=== PATIENT | male | born 1960 | race African-American/Black ===

== ENCOUNTER 2016-06-12 02:34 | Emergency (ER) | payer OTHER ==
[2005-09-14 14:28] VITALS: BP 132/78
[~2016-06-12] VITALS: Ht 167.6 cm; Wt 77.3 kg
[~2016-06-12 02:34] MED LIST: ADVICOR 20 MG-51 TER PO; ASPIRIN 81M81 MG/TA2 PO; CHOLESTOFF; CIPRO 500MG TA500 MG PO; DIOVAN; FLEXERIL 1010 MG/TAB PO; FLEXERIL5 MG PO; GLUCOPHAGE; GLUCOPHAGE500 MG PO; GLUCOPHAGE500 MG/TAB PO; HYZAAR 25 MG-101 TAB PO; LORTAB 7.5/5001 TAB PO; METFORMIN; MOTRIN 600600 MG/TAB PO; NORCO 325 MG-51 TAB PO; NORCO 325 MG-7.1 TAB PO; ONE-A-DAY MEN'S1 TAB PO; PEPCID 20MG TAB20 MG PO; PERCOCET 5/321 UDTAB PO; PHENERGAN W/CO120 M1 PO; PREDNISONE20 MG PO; PROAIR HFA0.09 MG/AC IH; REGLAN 10MG10 MG/TAB PO; RT SPIRIVA18 MCG IH; THERAGRAN1 TA1 PO; TRAMADOL50 MG PO; ZITHROMAX 250M250 MG PO; ZOCOR 40MG40 MG PO; ZOFRAN 4MG T4 MG/TAB PO; ZOFRAN ODT4 MG PO
[2016-06-12 02:36] VITALS: BP 137/92; TEMP 98.1
[2016-06-12 03:00] LABS: BASO % 0.1 % (0.0-2.0); EOS % 0.3 % (0-4.0); GRAN # 5.3 (1.4-6.5); HEMATOCRIT 37.3 % (42.0-52.0); HEMOGLOBIN 13.6 g/dl (13.5-18.0); LYMPH # 1.9 (1.2-3.4); LYMPH % 24.3 % (20.0-51.0); MEAN CELL VOLUME 94 fl (80.0-100.0); MEAN CORPUSCULAR HEMOGLOBIN 34 pg (27.0-31.0); MEAN CORPUSCULAR HGB CONC 37 g/dl (33.0-37.0); MEAN PLATELET VOLUME 10.6 fl (7.4-10.4); MONO # 0.6 (0.1-0.6); PLATELET COUNT 213 K/mm3 (130-400); RED BLOOD COUNT 3.96 M/mm3 (4.20-5.60); REDCELL DISTRIBUTION WIDTH-CV 11.8 % (11.5-14.5); WHITE BLOOD COUNT 7.9 K/mm3 (4.8-10.8)
[2016-06-12 03:10] LABS: ADJUSTED CALCIUM 9.7 mg/dL (8.4-10.2); ALBUMIN 4.6 gm/dL (3.5-5.0); BILIRUBIN,TOTAL 1.1 mg/dL (0.0-1.0); CALCIUM 10.2 mg/dL (8.4-10.2); CREATININE, serum 0.78 mg/dL (0.66-1.25)
[2016-06-12 03:16] LABS: INFLUENZA B NEGATIVE
[2016-06-12] MEDS ORDERED: ZOFRAN ODT4 MG PO (03:24)
[2016-06-12] MEDS ORDERED: ZITHROMAX Z PA250 MG PO (03:33)
[2016-06-12 03:41] VITALS: PULSE 97
== END 2016-06-12 03:42 | disposition home or self-care (01) ==
LOC: COL.ER 02:34
PROVIDERS: Family Medicine
DX: E11.43 Type 2 diabetes mellitus with diabetic autonomic (poly)neuropathy (principal); K31.84 Gastroparesis; J32.9 Chronic sinusitis, unspecified; F17.210 Nicotine dependence, cigarettes, uncomplicated; Z79.84 Long term (current) use of oral hypoglycemic drugs
CPT/HCPCS: J2405; J7030

== ENCOUNTER 2017-07-03 23:45 | Emergency (ER) | payer OTHER ==
[2005-09-14 14:28] VITALS: BP 132/78
[~2017-07-03] VITALS: Ht 167.6 cm; Wt 81.8 kg
[~2017-07-03 23:45] MED LIST changes: +ZITHROMAX Z PA250 MG PO
[2017-07-03 23:52] VITALS: BP 130/88; TEMP 98.1
[2017-07-04 01:07] LABS: INFLUENZA A NEGATIVE; INFLUENZA B NEGATIVE
[2017-07-04] MEDS ORDERED: PHENERGAN W/CO120 M1 PO (01:29)
[2017-07-04] MEDS ORDERED: ZITHROMAX Z PA250 MG PO (01:29)
[2017-07-04 02:26] VITALS: PULSE 109
== END 2017-07-04 02:27 | disposition home or self-care (01) ==
LOC: COL.ER 23:45
PROVIDERS: Emergency Medicine
DX: J20.9 Acute bronchitis, unspecified (principal); E11.9 Type 2 diabetes mellitus without complications; I10 Essential (primary) hypertension; F17.210 Nicotine dependence, cigarettes, uncomplicated; Z90.89 Acquired absence of other organs; Z79.84 Long term (current) use of oral hypoglycemic drugs; Z79.82 Long term (current) use of aspirin

== ENCOUNTER 2017-10-04 10:19 | Emergency (ER) | payer OTHER ==
[2005-09-14 14:28] VITALS: BP 132/78
[~2017-10-04] VITALS: Ht 167.6 cm; Wt 77.3 kg
[2017-10-04 10:31] VITALS: BP 124/83; TEMP 98.2
[2017-10-04 11:13] LABS: BASO % 0.2 % (0.0-2.0); EOS # 0.1 (0.0-0.7); GRAN # 2.2 (1.4-6.5); GRAN % 48.3 % (42.2-75.2); HEMOGLOBIN 12.1 g/dl (13.5-18.0); LYMPH # 1.9 (1.2-3.4); LYMPH % 42.4 % (20.0-51.0); MEAN CELL VOLUME 102 fl (80.0-100.0); MEAN CORPUSCULAR HEMOGLOBIN 36 pg (27.0-31.0); MEAN CORPUSCULAR HGB CONC 35 g/dl (33.0-37.0); MONO # 0.3 (0.1-0.6); MONO % 6.9 % (1.7-9.3); PLATELET COUNT 267 K/mm3 (130-400); RED BLOOD COUNT 3.37 M/mm3 (4.20-5.60); REDCELL DISTRIBUTION WIDTH-CV 12.4 % (11.5-14.5)
[2017-10-04 11:15] LABS: HEMATOCRIT 34.4 % (42.0-52.0)
[2017-10-04 11:26] LABS: ALANINE AMINOTRANSFERASE 46 U/L (21-72); ALBUMIN 4.3 gm/dL (3.5-5.0); ALKALINE PHOSPHATASE 52 U/L (50-136); ANION GAP 12 mmol/L (7-16); AST,SGOT 58 U/L (15-37); BILIRUBIN,TOTAL 0.3 mg/dL (0.0-1.0); BLOOD UREA NITROGEN 10 mg/dL (9-20); CALCIUM 9.7 mg/dL (8.4-10.2); CARBON DIOXIDE 27 mmol/L (22-30); CHLORIDE 100 mmol/L (98-107); CREATINE KINASE 1051 U/L (55-170); CREATININE, serum 0.64 mg/dL (0.66-1.25); GLUCOSE 143 mg/dL (74-106); POTASSIUM 3.1 mmol/L (3.4-5.0); SODIUM 139 mmol/L (137-145); TOTAL PROTEIN 7.4 gm/dL (6.4-8.2)
[2017-10-04 11:27] LABS: C-REACTIVE PROTEIN < 0.5 mg/dL (0.0-0.9)
[2017-10-04 11:36] LABS: TROPONIN-I < 0.012 ng/mL (0.000-0.034)
[2017-10-04 11:37] LABS: ERYTHROCYTE SEDIMENTATION RATE 11 mm/hr (0-30)
[2017-10-04] MEDS ORDERED: NORCO 325 MG-51 TAB PO (11:49)
[2017-10-04 12:12] VITALS: PULSE 100
== END 2017-10-04 12:13 | disposition home or self-care (01) ==
LOC: COL.ER 10:19
PROVIDERS: Emergency Medicine
DX: M25.512 Pain in left shoulder (principal); M25.511 Pain in right shoulder; I10 Essential (primary) hypertension; E11.9 Type 2 diabetes mellitus without complications; Z79.84 Long term (current) use of oral hypoglycemic drugs; Z79.82 Long term (current) use of aspirin; X58.XXXA Exposure to other specified factors, initial encounter
CPT/HCPCS: J1885

== ENCOUNTER 2017-12-04 00:43 | Emergency (ER) | payer OTHER ==
[2005-09-14 14:28] VITALS: BP 132/78
[~2017-12-04] VITALS: Ht 167.6 cm; Wt 80.0 kg
[2017-12-04 00:48] VITALS: TEMP 98.2
[2017-12-04 02:47] VITALS: BP 117/83; PULSE 101
== END 2017-12-04 02:51 | disposition home or self-care (01) ==
LOC: COL.ER 00:43
DX: M75.42 Impingement syndrome of left shoulder (principal); F17.210 Nicotine dependence, cigarettes, uncomplicated; Z90.89 Acquired absence of other organs; E78.5 Hyperlipidemia, unspecified; I10 Essential (primary) hypertension; E11.9 Type 2 diabetes mellitus without complications; Z79.84 Long term (current) use of oral hypoglycemic drugs; Z79.82 Long term (current) use of aspirin

== ENCOUNTER → 2017-12-20 | Outpatient (CLI) | payer OTHER | LOC: COL.RAD 07:30 | DX: M75.102 Unspecified rotator cuff tear or rupture of left shoulder, not specified as traumatic (principal); M19.012 Primary osteoarthritis, left shoulder ==

== ENCOUNTER 2018-02-22 02:17 | Observation (INO) | payer OTHER ==
[~2018-02-22] VITALS: Ht 167.6 cm; Wt 74.9 kg
[2018-02-22 02:29] LABS: BASO # 0.1 (0.0-0.2); BASO % 0.6 % (0.0-2.0); EOS % 0.4 % (0-4.0); GRAN % 64.2 % (42.2-75.2); HEMOGLOBIN 12.6 g/dl (13.5-18.0); LYMPH # 2.2 (1.2-3.4); LYMPH % 27.9 % (20.0-51.0); MEAN CELL VOLUME 101 fl (80.0-100.0); MEAN CORPUSCULAR HEMOGLOBIN 35 pg (27.0-31.0); MEAN CORPUSCULAR HGB CONC 34 g/dl (33.0-37.0); MEAN PLATELET VOLUME 10.3 fl (7.4-10.4); MONO # 0.5 (0.1-0.6); MONO % 6.4 % (1.7-9.3); PLATELET COUNT 259 K/mm3 (130-400); RED BLOOD COUNT 3.62 M/mm3 (4.20-5.60); REDCELL DISTRIBUTION WIDTH-CV 11.8 % (11.5-14.5)
[2018-02-22 02:31] LABS: HEMATOCRIT 36.6 % (42.0-52.0)
[2018-02-22 02:41] LABS: BLOOD UREA NITROGEN 19 mg/dL (9-20); CREATININE, serum 0.81 mg/dL (0.66-1.25); GLUCOSE 160 mg/dL (74-106); SODIUM 135 mmol/L (137-145)
[2018-02-22 02:42] LABS: ALANINE AMINOTRANSFERASE 35 U/L (21-72); ALBUMIN 4.2 gm/dL (3.5-5.0); ALKALINE PHOSPHATASE 50 U/L (50-136); ANION GAP 12 mmol/L (7-16); AST,SGOT 34 U/L (15-37); BILIRUBIN,TOTAL 0.5 mg/dL (0.0-1.0); CALCIUM 9.3 mg/dL (8.4-10.2); CARBON DIOXIDE 27 mmol/L (22-30); CHLORIDE 96 mmol/L (98-107)
[2018-02-22 02:43] LABS: ALCOHOL(ethanol),MEDICAL < 10 mg/dL; C-REACTIVE PROTEIN < 0.5 mg/dL (0.0-0.9); POTASSIUM 2.5 mmol/L (3.4-5.0)
[2018-02-22 02:54] LABS: TROPONIN-I < 0.012 ng/mL (0.000-0.034)
[2018-02-22 02:56] LABS: PROLACTIN 75.6 ng/mL (3.7-17.9)
[2018-02-22 03:12] VITALS: BP 116/74; PULSE 114
[2018-02-22] MEDS ORDERED: FORTAMET500 M1 PO (03:15)
[2018-02-22] MEDS ORDERED: REVATIO20 MG PO (03:18)
[2018-02-22] MEDS ORDERED: ONE DAILY1 TA1 PO (03:18)
[2018-02-22 06:05] VITALS: BP 119/64; PULSE 103; TEMP 97.1
[2018-02-22 07:50] VITALS: BP 133/79; PULSE 89; TEMP 98.2
[2018-02-22 10:18] LABS: CALCIUM 9.1 mg/dL (8.4-10.2); CREATININE, serum 0.59 mg/dL (0.66-1.25)
[2018-02-22 11:32] VITALS: BP 124/81; PULSE 81; TEMP 98
[2018-02-22 13:11] LABS: THYROXINE (T4)-TOTAL 8.8 ug/dL (5.5-11.0)
[2018-02-22 13:24] LABS: THYROID STIMULATING HORMONE 1.12 uIU/mL (0.465-4.680)
[2018-02-22 13:31] LABS: COLLECTION METHOD CLEAN CATCH
[2018-02-22 13:39] LABS: MUCOUS Present /lpf; PH 6 (5-8); SQUAMOUS EPITHELIAL 0-2 /hpf; URINE APPEARANCE Clear; URINE BACTERIA None Seen /hpf; URINE BILIRUBIN Negative (NEGATIVE); URINE BLOOD Negative (NEGATIVE); URINE COLOR Yellow; URINE GLUCOSE 2+ (NEGATIVE); URINE KETONE Negative (NEGATIVE); URINE LEUKOCYTE ESTERASE Negative (NEGATIVE); URINE NITRATE Negative (NEGATIVE); URINE PROTEIN(semi-quant) Negative (NEGATIVE)
[2018-02-22 13:53] LABS: TRICYCLIC ANTIDEPRESS URINE NEGATIVE
[2018-02-22 16:11] VITALS: BP 150/87; PULSE 88; TEMP 97.7
[2018-02-22] MEDS ORDERED: NORCO 325 MG-7.1 TAB PO (17:04)
[2018-02-22] MEDS ORDERED: HYZAAR 50-12.1 UDTAB PO (17:05)
[2018-02-23 14:40] LABS: FOLATE (FOLIC ACID) 15.2 ng/mL (7.0-31.4)
[2018-02-25 00:48] LABS: RPR (VDRL) Non-reactive (())
[2018-02-25 14:44] LABS: CADMIUM BLOOD 0.4 ng/mL (0.0-4.9); MERCURY,SERUM <1 ng/mL (0-9)
== END 2018-02-22 18:30 | disposition home or self-care (01) ==
LOC: COL.ER 02:17 → MEDICAL 04:31
PROVIDERS: Emergency Medicine; Hospitalist; Psychiatry & Neurology Neurology
DX: R56.9 Unspecified convulsions (principal); E87.6 Hypokalemia; E11.9 Type 2 diabetes mellitus without complications; I10 Essential (primary) hypertension; E78.5 Hyperlipidemia, unspecified; F17.210 Nicotine dependence, cigarettes, uncomplicated; F10.10 Alcohol abuse, uncomplicated; Z79.82 Long term (current) use of aspirin; Z79.84 Long term (current) use of oral hypoglycemic drugs; Z88.8 Allergy status to other drugs, medicaments and biological substances
CPT/HCPCS: G0378; J2060; J3475; J3480

== ENCOUNTER → 2018-03-11 | Outpatient (CLI) | payer OTHER ==
[~2018-03-11] MED LIST changes: +FORTAMET500 M1 PO; +HYZAAR 50-12.1 UDTAB PO; +ONE DAILY1 TA1 PO; +REVATIO20 MG PO
== END ==
LOC: COL.RAD 10:24
DX: I67.82 Cerebral ischemia (principal); R56.9 Unspecified convulsions
CPT/HCPCS: A9585

== ENCOUNTER 2018-04-09 05:53 | Emergency (ER) | payer OTHER ==
[2005-09-14 14:28] VITALS: BP 132/78
[2018-04-09 05:59] VITALS: TEMP 98
[2018-04-09 06:52] LABS: BASO % 0.3 % (0.0-2.0); EOS % 0.3 % (0-4.0); GRAN # 4.5 (1.4-6.5); GRAN % 67.2 % (42.2-75.2); HEMATOCRIT 37.2 % (42.0-52.0); HEMOGLOBIN 12.9 g/dl (13.5-18.0); LYMPH # 1.6 (1.2-3.4); LYMPH % 23.6 % (20.0-51.0); MEAN CELL VOLUME 102 fl (80.0-100.0); MEAN CORPUSCULAR HEMOGLOBIN 35 pg (27.0-31.0); MEAN CORPUSCULAR HGB CONC 35 g/dl (33.0-37.0); MEAN PLATELET VOLUME 10.5 fl (7.4-10.4); MONO # 0.6 (0.1-0.6); MONO % 8.3 % (1.7-9.3); PLATELET COUNT 247 K/mm3 (130-400); RED BLOOD COUNT 3.64 M/mm3 (4.20-5.60); REDCELL DISTRIBUTION WIDTH-CV 12.3 % (11.5-14.5)
[2018-04-09 07:04] LABS: ALANINE AMINOTRANSFERASE 68 U/L (21-72); ALBUMIN 4.8 gm/dL (3.5-5.0); ALCOHOL(ethanol),MEDICAL 236 mg/dL; ALKALINE PHOSPHATASE 69 U/L (50-136); ANION GAP 14 mmol/L (7-16); AST,SGOT 81 U/L (15-37); BILIRUBIN,TOTAL 0.6 mg/dL (0.0-1.0); BLOOD UREA NITROGEN 10 mg/dL (9-20); CALCIUM 10.2 mg/dL (8.4-10.2); CARBON DIOXIDE 26 mmol/L (22-30); CHLORIDE 100 mmol/L (98-107); CREATININE, serum 0.69 mg/dL (0.66-1.25); GLUCOSE 140 mg/dL (74-106); POTASSIUM 3.3 mmol/L (3.4-5.0); SODIUM 140 mmol/L (137-145)
[2018-04-09 07:05] LABS: ACETAMINOPHEN < 10 ug/mL (10-30); SALICYLATE < 1.0 mg/dL
[2018-04-09 11:13] LABS: COLLECTION METHOD CLEAN CATCH
[2018-04-09 11:19] LABS: PH 7 (5-8); SQUAMOUS EPITHELIAL 0-2 /hpf; URINE APPEARANCE Clear; URINE BACTERIA None Seen /hpf; URINE BILIRUBIN Negative (NEGATIVE); URINE BLOOD Negative (NEGATIVE); URINE COLOR Yellow; URINE GLUCOSE Negative (NEGATIVE); URINE KETONE Negative (NEGATIVE); URINE LEUKOCYTE ESTERASE Negative (NEGATIVE); URINE NITRATE Negative (NEGATIVE); URINE PROTEIN(semi-quant) Negative (NEGATIVE); URINE RBC 0-2 /hpf; URINE UROBILINOGEN Negative (NEGATIVE)
[2018-04-09] MEDS ORDERED: FLEXERIL 1010 MG/TAB PO (11:39)
[2018-04-09] MEDS ORDERED: ANTIVERT 25MG25 MG PO (11:39)
[2018-04-09 12:00] VITALS: PULSE 95
[2018-04-09 12:22] LABS: TRICYCLIC ANTIDEPRESS URINE NEGATIVE
[2018-04-09 13:57] VITALS: BP 143/93
== END 2018-04-09 13:56 | disposition home or self-care (01) ==
LOC: COL.ER 05:53
PROVIDERS: Emergency Medicine
DX: T48.1X1A Poisoning by skeletal muscle relaxants [neuromuscular blocking agents], accidental (unintentional), initial encounter (principal); F10.129 Alcohol abuse with intoxication, unspecified; R41.82 Altered mental status, unspecified; E11.9 Type 2 diabetes mellitus without complications; I10 Essential (primary) hypertension; E78.5 Hyperlipidemia, unspecified; Y90.7 Blood alcohol level of 200-239 mg/100 ml; Z90.89 Acquired absence of other organs; Z79.82 Long term (current) use of aspirin; Z79.84 Long term (current) use of oral hypoglycemic drugs
CPT/HCPCS: J1630; J2060; J7030

== ENCOUNTER 2019-05-02 13:29 | Emergency (ER) | payer BC ==
[2005-09-14 14:28] VITALS: BP 132/78
[~2019-05-02] VITALS: Ht 167.6 cm; Wt 71.8 kg
[~2019-05-02 13:29] MED LIST changes: +ANTIVERT 25MG25 MG PO
[2019-05-02 13:36] VITALS: BP 127/92; TEMP 98.3
[2019-05-02 14:57] VITALS: PULSE 98
== END 2019-05-02 14:57 | disposition home or self-care (01) ==
LOC: COL.ER 13:29
DX: E11.9 Type 2 diabetes mellitus without complications (principal); I10 Essential (primary) hypertension; F17.210 Nicotine dependence, cigarettes, uncomplicated; Z90.89 Acquired absence of other organs; Z79.82 Long term (current) use of aspirin; Z79.4 Long term (current) use of insulin; Z76.0 Encounter for issue of repeat prescription

== ENCOUNTER 2019-05-04 09:02 | Emergency (ER) | payer BC ==
[2005-09-14 14:28] VITALS: BP 132/78
[~2019-05-04] VITALS: Ht 167.6 cm; Wt 71.8 kg
[2019-05-04] MEDS ORDERED: GLUCOPHAGE500 MG/TAB PO (09:11)
[2019-05-04 10:27] LABS: BASO % 0.7 % (0.0-2.0); GRAN # 1.9 (1.4-6.5); GRAN % 64.7 % (42.2-75.2); HEMATOCRIT 38.4 % (42.0-52.0); HEMOGLOBIN 13.5 g/dl (13.5-18.0); LYMPH # 0.7 (1.2-3.4); LYMPH % 25.1 % (20.0-51.0); MEAN CELL VOLUME 101 fl (80.0-100.0); MEAN CORPUSCULAR HEMOGLOBIN 35 pg (27.0-31.0); MEAN CORPUSCULAR HGB CONC 35 g/dl (33.0-37.0); MEAN PLATELET VOLUME 10.1 fl (7.4-10.4); MONO # 0.3 (0.1-0.6); MONO % 9.5 % (1.7-9.3); PLATELET COUNT 192 K/mm3 (130-400); RED BLOOD COUNT 3.82 M/mm3 (4.20-5.60)
[2019-05-04 10:46] LABS: ALANINE AMINOTRANSFERASE 27 U/L (21-72); ALCOHOL(ethanol),MEDICAL 81 mg/dL; ALKALINE PHOSPHATASE 71 U/L (50-136); ANION GAP 15 mmol/L (7-16); AST,SGOT 53 U/L (15-37); BILIRUBIN,TOTAL 0.7 mg/dL (0.0-1.0); BLOOD UREA NITROGEN 9 mg/dL (9-20); CALCIUM 9.5 mg/dL (8.4-10.2); CARBON DIOXIDE 27 mmol/L (22-30); CHLORIDE 91 mmol/L (98-107); CREATININE, serum 0.64 (0.66-1.25); GLUCOSE 151 mg/dL (74-106); MAGNESIUM 1.7 mg/dL (1.6-2.3); POTASSIUM 3.6 mmol/L (3.4-5.0); SODIUM 133 mmol/L (137-145); TOTAL PROTEIN 8.2 gm/dL (6.4-8.2)
[2019-05-04 11:03] LABS: TROPONIN-I < 0.012 ng/mL (0.000-0.035)
[2019-05-04 12:02] VITALS: TEMP 98.4
[2019-05-04 13:11] VITALS: BP 145/93; PULSE 100
== END 2019-05-04 13:11 | disposition home or self-care (01) ==
LOC: COL.ER 09:02
PROVIDERS: Family Medicine
DX: R00.2 Palpitations (principal); E11.9 Type 2 diabetes mellitus without complications; I10 Essential (primary) hypertension; F10.20 Alcohol dependence, uncomplicated; Z91.14 Patient's other noncompliance with medication regimen; Z79.82 Long term (current) use of aspirin; Z79.84 Long term (current) use of oral hypoglycemic drugs
CPT/HCPCS: G0463; J2060; J2405; J7030

== ENCOUNTER 2019-06-19 15:46 | Observation (INO) | payer BC ==
[~2019-06-19] VITALS: Ht 167.6 cm; Wt 66.5 kg
[2019-06-19] VITALS (170 sets, daily range): BP systolic 108–129; BP diastolic 68–92; PULSE 83–103; TEMP 98; O2SAT 58–100
[2019-06-19 16:19] LABS: BASO % 0.7 % (0.0-2.0); EOS % 0.5 % (0-4.0); GRAN # 2.1 (1.4-6.5); GRAN % 48.8 % (42.2-75.2); HEMATOCRIT 38.9 % (42.0-52.0); HEMOGLOBIN 13.5 g/dl (13.5-18.0); LYMPH # 1.8 (1.2-3.4); LYMPH % 43.4 % (20.0-51.0); MEAN CELL VOLUME 104 fl (80.0-100.0); MEAN CORPUSCULAR HEMOGLOBIN 36 pg (27.0-31.0); MEAN CORPUSCULAR HGB CONC 35 g/dl (33.0-37.0); MEAN PLATELET VOLUME 10.1 fl (7.4-10.4); MONO # 0.3 (0.1-0.6); MONO % 6.4 % (1.7-9.3); PLATELET COUNT 312 K/mm3 (130-400); RED BLOOD COUNT 3.75 M/mm3 (4.20-5.60); REDCELL DISTRIBUTION WIDTH-CV 12.8 % (11.5-14.5)
[2019-06-19 16:41] LABS: COLLECTION METHOD CLEAN CATCH
[2019-06-19 16:46] LABS: MUCOUS Present /lpf; PH 6 (5-8); SQUAMOUS EPITHELIAL 0-2 /hpf; URINE APPEARANCE Clear; URINE BACTERIA Rare /hpf; URINE BILIRUBIN Negative (NEGATIVE); URINE BLOOD Negative (NEGATIVE); URINE COLOR Yellow; URINE GLUCOSE Negative (NEGATIVE); URINE KETONE Negative (NEGATIVE); URINE LEUKOCYTE ESTERASE Negative (NEGATIVE); URINE NITRATE Negative (NEGATIVE); URINE PROTEIN(semi-quant) Negative (NEGATIVE); URINE RBC 0-2 /hpf; URINE UROBILINOGEN Negative (NEGATIVE)
[2019-06-19] MEDS ORDERED: LIPITOR 40MG TA40 MG PO (16:46)
[2019-06-19] MEDS ORDERED: COZAAR100 MG PO (16:48)
[2019-06-19 16:53] LABS: ALANINE AMINOTRANSFERASE 23 U/L (21-72); ALBUMIN 4.3 gm/dL (3.5-5.0); ALKALINE PHOSPHATASE 61 U/L (50-136); ANION GAP 11 mmol/L (7-16); AST,SGOT 45 U/L (15-37); BILIRUBIN,TOTAL 0.4 mg/dL (0.0-1.0); BLOOD UREA NITROGEN 11 mg/dL (9-20); CALCIUM 8.8 mg/dL (8.4-10.2); CARBON DIOXIDE 26 mmol/L (22-30); CHLORIDE 106 mmol/L (98-107); CREATININE, serum 0.71 (0.66-1.25); GLUCOSE 117 mg/dL (74-106); MAGNESIUM 1.7 mg/dL (1.6-2.3); PHOSPHOROUS 3.7 mg/dL (2.5-4.5); POTASSIUM 3.3 mmol/L (3.4-5.0); SODIUM 143 mmol/L (137-145); TOTAL PROTEIN 7.2 gm/dL (6.4-8.2)
[2019-06-19 16:54] LABS: ACETAMINOPHEN < 10 ug/mL (10-30); SALICYLATE < 1.0 mg/dL
[2019-06-19 16:56] LABS: TRICYCLIC ANTIDEPRESS URINE NEGATIVE
[2019-06-19 17:03] LABS: ALCOHOL(ethanol),MEDICAL 358 mg/dL
--- NOTE | 2019-06-19 23:15 | NUR ---
Bed alarm sounded when this nurse entered the room, patient was sitting on the side of the bed. Asked about needing to use the bathroom and patient stated yes. Assited to toilet; patient noted to be incontinent of stool. Assisted with rubin-care and returned to bed and re-attached to all monitors. Patient calm and cooperative with staff at this time.
[2019-06-20] VITALS (481 sets, daily range): BP systolic 93–126; BP diastolic 56–80; PULSE 74–110; TEMP 97.9–98.1; O2SAT 82–100
--- NOTE | 2019-06-20 02:37 | NUR ---
Tan resting in bed at this time; VS stable. Will continue to monitor.
--- NOTE | 2019-06-20 06:30 | NUR ---
Updated CANDICE Thrasher from [facility] regarding patient status.
[2019-06-20 08:37] LABS: BASO % 0.9 % (0.0-2.0); EOS % 0.2 % (0-4.0); GRAN # 2.9 (1.4-6.5); GRAN % 64.4 % (42.2-75.2); HEMATOCRIT 37.6 % (42.0-52.0); HEMOGLOBIN 12.8 g/dl (13.5-18.0); LYMPH # 1.3 (1.2-3.4); LYMPH % 28.5 % (20.0-51.0); MEAN CELL VOLUME 104 fl (80.0-100.0); MEAN CORPUSCULAR HEMOGLOBIN 35 pg (27.0-31.0); MEAN CORPUSCULAR HGB CONC 34 g/dl (33.0-37.0); MEAN PLATELET VOLUME 10.2 fl (7.4-10.4); MONO # 0.3 (0.1-0.6); MONO % 5.8 % (1.7-9.3); PLATELET COUNT 291 K/mm3 (130-400); RED BLOOD COUNT 3.62 M/mm3 (4.20-5.60); REDCELL DISTRIBUTION WIDTH-CV 12.8 % (11.5-14.5)
[2019-06-20 08:51] LABS: CALCIUM 9.1 mg/dL (8.4-10.2); CREATININE, serum 0.75 (0.66-1.25); POTASSIUM 4.3 mmol/L (3.4-5.0)
--- NOTE | 2019-06-20 10:39 | NUR ---
Nurse told me I could not see this patient.
--- NOTE | 2019-06-20 10:48 | NUR ---
Zoom phone call initiated with screener. Patient accepts tablet and is provided privacy. Door closed and blinds left open for maintained line of site.
--- NOTE | 2019-06-20 12:50 | NUR ---
Patient discharged in [facility] custody. All belongings sent with. Care completed.
== END 2019-06-20 12:15 ==
LOC: COL.ER 15:46 → ICU 17:54
PROVIDERS: Emergency Medicine; ADMIT Family Medicine
DX: T46.5X2A Poisoning by other antihypertensive drugs, intentional self-harm, initial encounter (principal); I10 Essential (primary) hypertension; I95.9 Hypotension, unspecified; E11.9 Type 2 diabetes mellitus without complications; E78.5 Hyperlipidemia, unspecified; F10.10 Alcohol abuse, uncomplicated; Z88.8 Allergy status to other drugs, medicaments and biological substances; Z88.1 Allergy status to other antibiotic agents; F17.210 Nicotine dependence, cigarettes, uncomplicated
CPT/HCPCS: G0378; J1650; J2060; J3475; J3480; J7030

== ENCOUNTER → 2020-05-30 | Outpatient (CLI) | payer OTHER ==
[~2020-05-30] MED LIST changes: +COZAAR100 MG PO; +LIPITOR 40MG TA40 MG PO
== END ==
LOC: COL.RAD
DX: Z02.71 Encounter for disability determination (principal); M51.36 Other intervertebral disc degeneration, lumbar region; M50.322 Other cervical disc degeneration at C5-C6 level

== ENCOUNTER 2020-10-12 12:32 | Emergency (ER) | payer OTHER ==
[2005-09-14 14:28] VITALS: BP 132/78
[~2020-10-12] VITALS: Ht 167.6 cm; Wt 65.9 kg
[2020-10-12 12:44] VITALS: TEMP 98.2
[2020-10-12] MEDS ORDERED: HYZAAR 50-12.1 UDTAB PO (12:54)
[2020-10-12 13:21] LABS: COLLECTION METHOD CLEAN CATCH
[2020-10-12 13:41] LABS: BASO % 0.4 % (0.0-2.0); EOS % 0.3 % (0-4.0); GRAN # 6.5 (1.4-6.5); GRAN % 71.8 % (42.2-75.2); HEMOGLOBIN 14.9 g/dl (13.5-18.0); LYMPH # 1.9 (1.2-3.4); LYMPH % 20.8 % (20.0-51.0); MEAN CELL VOLUME 99 fl (80.0-100.0); MEAN CORPUSCULAR HEMOGLOBIN 35 pg (27.0-31.0); MEAN CORPUSCULAR HGB CONC 36 g/dl (33.0-37.0); MONO # 0.6 (0.1-0.6); MONO % 6.5 % (1.7-9.3); PLATELET COUNT 322 K/mm3 (130-400); RED BLOOD COUNT 4.25 M/mm3 (4.20-5.60); REDCELL DISTRIBUTION WIDTH-CV 12.5 % (11.5-14.5)
[2020-10-12 13:43] LABS: MUCOUS Present /lpf; PH 6 (5-8); SQUAMOUS EPITHELIAL 0-2 /hpf; URINE APPEARANCE Hazy; URINE BACTERIA None Seen /hpf; URINE BILIRUBIN Negative (NEGATIVE); URINE BLOOD Negative (NEGATIVE); URINE COLOR Yellow; URINE GLUCOSE Negative (NEGATIVE); URINE KETONE Negative (NEGATIVE); URINE LEUKOCYTE ESTERASE Negative (NEGATIVE); URINE NITRATE Negative (NEGATIVE); URINE PROTEIN(semi-quant) 1+ (NEGATIVE)
[2020-10-12 13:52] LABS: ALANINE AMINOTRANSFERASE 25 U/L (4-49); ALBUMIN 4.7 gm/dL (3.5-5.0); ALKALINE PHOSPHATASE 84 U/L (50-136); ANION GAP 10 mmol/L (7-16); AST,SGOT 31 U/L (15-37); BILIRUBIN,TOTAL 0.8 mg/dL (0.0-1.0); BLOOD UREA NITROGEN 9 mg/dL (9-20); C-REACTIVE PROTEIN < 0.5 mg/dL (0.0-0.9); CALCIUM 9.5 mg/dL (8.4-10.2); CARBON DIOXIDE 28 mmol/L (22-30); CHLORIDE 96 mmol/L (98-107); CREATININE, serum 0.71 (0.66-1.25); GLUCOSE 118 mg/dL (74-106); LIPASE 86 U/L (23-300); POTASSIUM 3.5 mmol/L (3.4-5.0); SODIUM 133 mmol/L (137-145)
[2020-10-12] MEDS ORDERED: NORCO 325 MG-51 TAB PO (14:58)
[2020-10-12 15:27] VITALS: BP 127/87; PULSE 116
== END 2020-10-12 15:27 | disposition home or self-care (01) ==
LOC: COL.ER 12:32
PROVIDERS: Nurse Practitioner
DX: M54.5 Low back pain (principal); I10 Essential (primary) hypertension; F17.210 Nicotine dependence, cigarettes, uncomplicated; Z79.899 Other long term (current) drug therapy
CPT/HCPCS: J1885; J7030

== ENCOUNTER 2021-01-26 08:17 | Emergency (ER) | payer OTHER ==
[~2021-01-26] VITALS: Ht 167.6 cm; Wt 79.1 kg
[2021-01-26 08:48] VITALS: TEMP 98.6
[2021-01-26 09:13] LABS: BASO % 0.3 % (0.0-2.0); EOS # 0.3 (0.0-0.7); GRAN # 4.9 (1.4-6.5); GRAN % 70.2 % (42.2-75.2); HEMATOCRIT 44.4 % (42.0-52.0); HEMOGLOBIN 15.9 g/dl (13.5-18.0); LYMPH # 1.4 (1.2-3.4); LYMPH % 19.5 % (20.0-51.0); MEAN CELL VOLUME 100 fl (80.0-100.0); MEAN CORPUSCULAR HEMOGLOBIN 36 pg (27.0-31.0); MEAN CORPUSCULAR HGB CONC 36 g/dl (33.0-37.0); MEAN PLATELET VOLUME 10.2 fl (7.4-10.4); MONO # 0.4 (0.1-0.6); MONO % 5.7 % (1.7-9.3); PLATELET COUNT 267 K/mm3 (130-400); RED BLOOD COUNT 4.44 M/mm3 (4.20-5.60); REDCELL DISTRIBUTION WIDTH-CV 12.8 % (11.5-14.5)
[2021-01-26 09:29] LABS: ALBUMIN 4.8 gm/dL (3.5-5.0); BILIRUBIN,TOTAL 0.7 mg/dL (0.0-1.0); C-REACTIVE PROTEIN 0.8 mg/dL (0.0-0.9); CREATININE, serum 0.82 (0.66-1.25); POTASSIUM 3.4 mmol/L (3.4-5.0); TOTAL PROTEIN 8.3 gm/dL (6.4-8.2)
[2021-01-26 10:29] LABS: COLLECTION METHOD CLEAN CATCH
[2021-01-26 10:36] LABS: MUCOUS Present /lpf; PH 6 (5-8); SQUAMOUS EPITHELIAL 0-2 /hpf; URINE APPEARANCE Hazy; URINE BACTERIA None Seen /hpf; URINE BILIRUBIN Negative (NEGATIVE); URINE BLOOD Negative (NEGATIVE); URINE COLOR Yellow; URINE GLUCOSE Negative (NEGATIVE); URINE KETONE Negative (NEGATIVE); URINE LEUKOCYTE ESTERASE Negative (NEGATIVE); URINE NITRATE Negative (NEGATIVE); URINE PROTEIN(semi-quant) 1+ (NEGATIVE); URINE RBC 0-2 /hpf
[2021-01-26] MEDS ORDERED: PREDNISONE10 MG PO (11:47)
[2021-01-26] MEDS ORDERED: ZITHROMAX Z PA250 MG PO (11:47)
[2021-01-26 12:00] VITALS: BP 126/89; PULSE 98
== END 2021-01-26 12:00 | disposition home or self-care (01) ==
LOC: COL.ER 08:17
PROVIDERS: Family Medicine
DX: J20.9 Acute bronchitis, unspecified (principal); Z20.822 Contact with and (suspected) exposure to COVID-19; I10 Essential (primary) hypertension; E11.9 Type 2 diabetes mellitus without complications; F17.200 Nicotine dependence, unspecified, uncomplicated; Z79.84 Long term (current) use of oral hypoglycemic drugs; Z79.899 Other long term (current) drug therapy
CPT/HCPCS: J2930; J7120

== ENCOUNTER 2021-03-05 03:12 | Emergency (ER) | payer OTHER ==
[~2021-03-05] VITALS: Ht 167.6 cm; Wt 77.3 kg
[~2021-03-05 03:12] MED LIST changes: +PREDNISONE10 MG PO
[2021-03-05 03:49] LABS: BASO # 0.1 (0.0-0.2); BASO % 0.9 % (0.0-2.0); EOS # 0.8 (0.0-0.7); EOS % 11.3 % (0-4.0); GRAN # 3.3 (1.4-6.5); GRAN % 48.5 % (42.2-75.2); HEMATOCRIT 39.6 % (42.0-52.0); HEMOGLOBIN 14.3 g/dl (13.5-18.0); LYMPH # 2.1 (1.2-3.4); LYMPH % 31.4 % (20.0-51.0); MEAN CELL VOLUME 100 fl (80.0-100.0); MEAN CORPUSCULAR HEMOGLOBIN 36 pg (27.0-31.0); MEAN CORPUSCULAR HGB CONC 36 g/dl (33.0-37.0); MEAN PLATELET VOLUME 10.4 fl (7.4-10.4); MONO # 0.5 (0.1-0.6); MONO % 7.6 % (1.7-9.3); PLATELET COUNT 260 K/mm3 (130-400); RED BLOOD COUNT 3.98 M/mm3 (4.20-5.60); REDCELL DISTRIBUTION WIDTH-CV 12.4 % (11.5-14.5)
[2021-03-05 04:59] LABS: TROPONIN-I 0.01 ng/mL (0.00-0.033)
[2021-03-05 05:01] LABS: ALBUMIN 3.7 gm/dL (3.4-4.8); BILIRUBIN,TOTAL 0.4 mg/dL (0.2-1.2); CALCIUM 9.4 mg/dL (8.4-10.2); CREATININE, serum 0.99 mg/dL (0.72-1.25)
[2021-03-05 05:03] LABS: POTASSIUM 2.9 mmol/L (3.5-4.5)
[2021-03-05] MEDS ORDERED: PROAIR HFA0.09 MG/AC IH (05:54)
[2021-03-05] MEDS ORDERED: PREDNISONE20 MG PO (05:54)
[2021-03-05] MEDS ORDERED: LEVAQUIN 750MG750 M1 PO (05:54)
[2021-03-05 06:12] VITALS: BP 120/75; PULSE 110; TEMP 98.6
== END 2021-03-05 06:09 | disposition home or self-care (01) ==
LOC: COL.ER 03:12
PROVIDERS: Emergency Medicine
DX: J18.9 Pneumonia, unspecified organism (principal); I10 Essential (primary) hypertension; Z87.891 Personal history of nicotine dependence; Z79.52 Long term (current) use of systemic steroids; Z79.899 Other long term (current) drug therapy; Z20.822 Contact with and (suspected) exposure to COVID-19
CPT/HCPCS: J2920; J7030

== ENCOUNTER 2021-12-03 13:59 | Emergency (ER) | payer MEDICARE ==
[~2021-12-03] VITALS: Ht 167.6 cm; Wt 77.3 kg
[~2021-12-03 13:59] MED LIST changes: +LEVAQUIN 750MG750 M1 PO
[2021-12-03 14:06] VITALS: TEMP 98.4
[2021-12-03 14:25] LABS: BASO # 0.1 K/mm3 (0.0-0.2); BASO % 0.8 % (0.0-2.0); EOS # 0.2 K/mm3 (0.0-0.7); EOS % 2.8 % (0.0-4.0); GRAN # 6.1 K/mm3 (1.4-6.5); GRAN % 70.6 % (42.2-75.2); HEMATOCRIT 39.4 % (42.0-52.0); HEMOGLOBIN 14.4 g/dl (13.5-18.0); LYMPH # 1.6 K/mm3 (1.2-3.4); LYMPH % 18.3 % (20.0-51.0); MEAN CELL VOLUME 99 fl (80.0-100.0); MEAN CORPUSCULAR HEMOGLOBIN 36 pg (27-31); MEAN CORPUSCULAR HGB CONC 37 g/dl (33.0-37.0); MEAN PLATELET VOLUME 10.4 fl (7.4-10.4); MONO # 0.6 K/mm3 (0.1-0.6); MONO % 7.2 % (1.7-9.3); PLATELET COUNT 318 K/mm3 (130-400); RED BLOOD COUNT 3.99 M/mm3 (4.20-5.60); REDCELL DISTRIBUTION WIDTH-CV 12.3 % (11.5-14.5)
[2021-12-03 14:40] LABS: ALANINE AMINOTRANSFERASE 29 U/L (0-55); ALBUMIN 3.9 gm/dL (3.4-4.8); ALKALINE PHOSPHATASE 88 U/L (40-150); ANION GAP 17 mmol/L (7-16); AST,SGOT 36 U/L (5-34); BILIRUBIN,TOTAL 0.9 mg/dL (0.2-1.2); BLOOD UREA NITROGEN 9 mg/dL (8-26); CALCIUM 9.8 mg/dL (8.4-10.2); CARBON DIOXIDE 28 mmol/L (23-31); CHLORIDE 90 mmol/L (98-107); CREATININE, serum 1.31 mg/dL (0.72-1.25); GLUCOSE 124 mg/dL (70-99); POTASSIUM 3.2 mmol/L (3.5-4.5); SODIUM 135 mmol/L (136-145); TOTAL PROTEIN 7.8 gm/dL (6.2-8.1)
[2021-12-03 14:55] LABS: TROPONIN-I < 0.010 ng/mL (0.00-0.033)
[2021-12-03] MEDS ORDERED: NEB MC ×3 (16:25→17:05)
[2021-12-03] MEDS ORDERED: IPRATROPIUM BROM3 M1 IH ×3 (16:25→17:05)
[2021-12-03] MEDS ORDERED: PREDNISONE20 MG PO ×3 (16:25→17:05)
[2021-12-03] MEDS ORDERED: ZITHROMAX 250M250 MG PO ×3 (16:25→17:05)
[2021-12-03] MEDS ORDERED: TESSALON PERLE200 MG PO ×3 (16:27→17:05)
[2021-12-03 16:44] VITALS: BP 95/63; PULSE 91
== END 2021-12-03 16:44 | disposition home or self-care (01) ==
LOC: COL.ER 13:59
PROVIDERS: Physician Assistant
DX: J42 Unspecified chronic bronchitis (principal); F17.210 Nicotine dependence, cigarettes, uncomplicated; Z20.822 Contact with and (suspected) exposure to COVID-19
CPT/HCPCS: J1100; J7030

== ENCOUNTER 2022-07-12 18:15 | Emergency (ER) | payer MEDICARE, MEDICAID ==
[~2022-07-12] VITALS: Ht 167.6 cm; Wt 77.3 kg
[~2022-07-12 18:15] MED LIST changes: +IPRATROPIUM BROM3 M1 IH; +NEB MC; +PROMETHAZINE D473 ML PO; +TESSALON PERLE200 MG PO
[2022-07-12 19:16] LABS: COLLECTION METHOD CLEAN CATCH
[2022-07-12 19:22] LABS: BASO # 0.1 K/mm3 (0.0-0.2); BASO % 0.4 % (0.0-2.0); GRAN % 86.2 % (42.2-75.2); HEMATOCRIT 45.1 % (42.0-52.0); HEMOGLOBIN 15.7 g/dl (13.5-18.0); LYMPH # 1.7 K/mm3 (1.2-3.4); LYMPH % 8.1 % (20.0-51.0); MEAN CELL VOLUME 104 fl (80.0-100.0); MEAN CORPUSCULAR HEMOGLOBIN 36 pg (27-31); MEAN CORPUSCULAR HGB CONC 35 g/dl (33.0-37.0); MEAN PLATELET VOLUME 10.1 fl (7.4-10.4); MONO % 4.6 % (1.7-9.3); PLATELET COUNT 264 K/mm3 (130-400); RED BLOOD COUNT 4.34 M/mm3 (4.20-5.60); REDCELL DISTRIBUTION WIDTH-CV 12.7 % (11.5-14.5)
[2022-07-12 19:25] LABS: MUCOUS Present (NOT PRESENT); SQUAMOUS EPITHELIAL 0-2 /hpf (0-10); URINE BACTERIA None Seen /hpf (NONE SEEN); URINE RBC 20-50 /hpf (0-2)
[2022-07-12 19:26] LABS: URINE APPEARANCE Cloudy (CLEAR/HAZY); URINE COLOR Yellow (YELLOW)
[2022-07-12 19:27] LABS: URINE BLOOD 3+ (NEGATIVE); URINE GLUCOSE Negative (NEGATIVE); URINE KETONE 1+ (NEGATIVE); URINE NITRATE Positive (NEGATIVE); URINE PROTEIN(semi-quant) 2+ (NEGATIVE)
[2022-07-12 19:41] LABS: ALBUMIN 3.6 gm/dL (3.4-4.8); CREATININE, serum 0.93 mg/dL (0.72-1.25); POTASSIUM 3.4 mmol/L (3.5-4.5); TOTAL PROTEIN 7.8 gm/dL (6.2-8.1)
[2022-07-12] MEDS ORDERED: LEVAQUIN 5500 MG/TA1 PO (21:23)
[2022-07-12 21:56] VITALS: BP 115/66; PULSE 115; TEMP 98.1
== END 2022-07-12 22:08 | disposition home or self-care (01) ==
LOC: COL.ER 18:15
PROVIDERS: Nurse Practitioner Primary Care
DX: N39.0 Urinary tract infection, site not specified (principal); R00.0 Tachycardia, unspecified; F17.200 Nicotine dependence, unspecified, uncomplicated
CPT/HCPCS: J1956; J7120; Q9967

== ENCOUNTER 2023-06-20 13:14 | Emergency (ER) | payer MEDICAID ==
[~2023-06-20] VITALS: Ht 167.6 cm; Wt 79.5 kg
[~2023-06-20 13:14] MED LIST changes: +LEVAQUIN 5500 MG/TA1 PO
[2023-06-20 13:23] VITALS: TEMP 98.1
[2023-06-20] MEDS ORDERED: PROAIR HFA0.09 MG/AC IH (14:27)
[2023-06-20] MEDS ORDERED: ZITHROMAX Z PA250 MG PO (14:27)
[2023-06-20 14:36] VITALS: BP 126/92; PULSE 82
[2023-06-20] MEDS ORDERED: TESSALON P100 MG/CAP PO (14:40)
== END 2023-06-20 14:42 | disposition home or self-care (01) ==
LOC: COL.ER 13:14
DX: J20.9 Acute bronchitis, unspecified (principal)
CPT/HCPCS: J2930

== ENCOUNTER 2023-07-28 14:24 | Emergency (ER) | payer MEDICAID ==
[~2023-07-28] VITALS: Ht 167.6 cm; Wt 80.9 kg
[~2023-07-28 14:24] MED LIST changes: +TESSALON P100 MG/CAP PO
[2023-07-28] MEDS ORDERED: NS 1,000 ML IV SCH (14:45)
[2023-07-28 15:27] LABS: BASO # 0.1 K/mm3 (0.0-0.2); BASO % 0.7 % (0.0-2.0); EOS % 0.5 % (0.0-4.0); GRAN # 5.1 K/mm3 (1.4-6.5); GRAN % 69.3 % (42.2-75.2); HEMATOCRIT 47.9 % (42.0-52.0); HEMOGLOBIN 16.7 g/dl (13.5-18.0); LYMPH # 1.7 K/mm3 (1.2-3.4); LYMPH % 23.3 % (20.0-51.0); MEAN CELL VOLUME 103 fl (80.0-100.0); MEAN CORPUSCULAR HEMOGLOBIN 36 pg (27-31); MEAN CORPUSCULAR HGB CONC 35 g/dl (33.0-37.0); MEAN PLATELET VOLUME 10.1 fl (7.4-10.4); MONO # 0.4 K/mm3 (0.1-0.6); MONO % 5.9 % (1.7-9.3); PLATELET COUNT 273 K/mm3 (130-400); RED BLOOD COUNT 4.66 M/mm3 (4.20-5.60); REDCELL DISTRIBUTION WIDTH-CV 13.3 % (11.5-14.5)
[2023-07-28 15:53] LABS: ALBUMIN 4.1 gm/dL (3.4-4.8); BILIRUBIN,TOTAL 0.8 mg/dL (0.2-1.2); CALCIUM 10.6 mg/dL (8.4-10.2); CREATININE, serum 0.97 mg/dL (0.72-1.25); POTASSIUM 4.3 mmol/L (3.5-4.5); TOTAL PROTEIN 7.6 gm/dL (6.2-8.1)
[2023-07-28] MEDS ORDERED: NS 100 ML IV SCH (16:19)
[2023-07-28] MEDS ORDERED: Iohexol 300 - 100 ML VIAL IV ONE (16:19)
[2023-07-28 16:36] LABS: COLLECTION METHOD CLEAN CATCH
[2023-07-28 16:40] LABS: PH 7.5 (5.0-8.5); URINE APPEARANCE CLEAR (CLEAR/HAZY); URINE BLOOD NEGATIVE (NEGATIVE); URINE COLOR YELLOW (YELLOW); URINE GLUCOSE NEGATIVE (NEGATIVE); URINE KETONE NEGATIVE (NEGATIVE); URINE NITRATE NEGATIVE (NEGATIVE); URINE PROTEIN(semi-quant) NEGATIVE (NEGATIVE); URINE UROBILINOGEN 0.2 E.U/dL (0.2-1.0)
[2023-07-28 18:08] LABS: CLOSTRIDIUM DIFF A/B NEG
[2023-07-28 18:35] VITALS: BP 115/87; PULSE 85; TEMP 98.1
== END 2023-07-28 18:35 | disposition home or self-care (01) ==
LOC: COL.ER 14:24
PROVIDERS: Physician Assistant
DX: R19.7 Diarrhea, unspecified (principal); R74.02 Elevation of levels of lactic acid dehydrogenase [LDH]; R74.01 Elevation of levels of liver transaminase levels; F17.200 Nicotine dependence, unspecified, uncomplicated; Z90.49 Acquired absence of other specified parts of digestive tract
CPT/HCPCS: J7030; Q9967